=== PATIENT | female | born 1935 | race Caucasian/White ===

== ENCOUNTER → 2017-04-19 | Day surgery (SDC) | payer MEDICARE ==
[~2017-04-19] VITALS: Ht 160 cm; Wt 75.0 kg
[~2017-04-19] MED LIST: ASPI-516 CHEW; ASPI1TAB69 PO; CLON0.1T PO; HYDR-3516 PO; LEVO.075 PO; LEVO50TA4 PO; LIDOCAINE HCL 1% PF 5 ML SYRINGE OTHER ONE; LISI-515 PO; METR250 PO; POLYSOL14 EACH EYE; PRIL20CA9 PO; PRIL20TA2 PO; PROPOFOL 200 MG/20 ML AMP IV ONE; SODIUM CHLOR 0.9% 1000 ML INJ 1,000 ML IV SCH; VITA1000 PO; VITACAP7 PO; WARF4TAB51 PO
[2017-04-19 07:04] VITALS: BP 204/88; PULSE 89; RESP 17; TEMP 99.2; O2SAT 99
--- NOTE | 2017-04-19 07:25 | PD ---
HPI Chief Complaint: GI Complaint Time Seen by Provider: 07:13 Travel History International Travel<30 days: No Contact w/Intl Traveler<30days: No Traveled to known affect area: No History of Present Illness HPI patient states she is having difficulty swallowing, not with initiating necessarily but unable to keep even water which gets to about midchest and then "comes back up" again...since 1700 yesterday, and usually seems to improve on its own but also if it doesn't it means that her esophagus "needs to be stretched" again. she has not been able to take her usual medications either...although initially able to swallow her own secretions, after an hour or so patient states she vomits and notices is her saliva (no foodstuff in it) chart and rn notes reviewed all:many see above pmhx: hiatal hernia, esophageal strictures, htn hyperlipidemia, factor 5 leiden , pshx: esophageal dilations PFSH Past Medical History Arthritis: Yes (HANDS) Blood Disorders: Yes (FACTOR 5) Cancer: No Cardiovascular Problems: Yes High Cholesterol: No Chest Pain: No Cerebrovascular Accident: No Diminished Hearing: No Endocrine: Yes Gastrointestinal Disorders: Yes (ISCHEMIC COLITIS, ESOPHAGEAL STRICTURES) GERD: Yes Genitourinary: No Headaches: Yes (WITH HYPERTENSION) Hiatal Hernia: Yes Hypertension: Yes Immune Disorder: No Musculoskeletal: No Neurologic: No Reproductive: No Respiratory: No Renal Failure: No Thyroid Disease: Yes (HYPOTHYROID) Menopausal: Yes Past Surgical History Abdominal Surgery: Yes (COLON RESECTION, RIGHT INGUINAL HERNIA REPAIR) Appendectomy: Yes (50 YEARS AGO) Cardiac Surgery: No Ear Surgery: No Endocrine Surgery: No Eye Surgery: No Genitourinary Surgery: No Gynecologic Surgery: Yes (OOPHERECTECTOMY) Hysterectomy: Yes (PARTIAL 40+YRS AGO THEN COMPLETED 20YRS AGO) Oral Surgery: No Thoracic Surgery: No Other Surgery: Yes (see hx) Social History Alcohol Use: No (OCC) Tobacco Use: No Substance Use: No Allergies-Medications (Allergen,Severity, Reaction): Coded Allergies: codeine (Unverified Allergy, Severe, EMESIS, 01/13/17) iodine (Unverified Allergy, Severe, HIVES, 01/13/17) iohexol (Unverified Allergy, Severe, HIVES, 01/13/17) levofloxacin (Unverified Allergy, Severe, THRUSH/RED TONGUE, 01/13/17) penicillin G (Unverified Allergy, Severe, EDEMA, 01/13/17) potassium iodide (Unverified Allergy, Severe, HIVES, 01/13/17) povidone-iodine (Unverified Allergy, Severe, HIVES, 01/13/17) sodium iodide (Unverified Allergy, Severe, HIVES, 01/13/17) sodium iodide (Unverified Allergy, Severe, HIVES, 01/13/17) Sulfa (Sulfonamide Antibiotics) (Unverified Allergy, Unknown, UNKNOWN, ) ciprofloxacin (Verified Allergy, Unknown, 04/19/17) doxycycline (Verified Allergy, Unknown, 04/19/17) Reported Meds & Prescriptions Reported Meds & Active Scripts Active Reported Flagyl (Metronidazole) 250 Mg Tab 250 Mg PO DAILY Hydrocodone-Acetaminophen 5-325 mg Tab 1 Tab PO Q6H PRN Clonidine (Clonidine HCl) 0.1 Mg Tab 0.1 Mg PO DAILY Lisinopril 20 Mg Tab 20 Mg PO DAILY Prilosec (Omeprazole Magnesium) 20 Mg Tab 1 Tab PO DAILY Synthroid (Levothyroxine Sodium) 75 Mcg Tab 75 Mcg PO DAILY Aspirin 81 Mg Chew 81 Mg CHEW DAILY B Complex (B-Complex Vitamins) 1 Cap 1 Cap PO DAILY Vitamin D-1000 (Cholecalciferol) 1,000 Unit Tab 1,000 Units PO DAILY Warfarin 2 Mg Tab 2 Mg PO DAILY Review of Systems Except as stated in HPI: all other systems reviewed are Neg General / Constitutional: No: Fever Eyes: No: Visual changes HENT: No: Headaches Cardiovascular: No: Chest Pain or Discomfort Respiratory: No: Shortness of Breath Gastrointestinal: Positive: Vomiting, Dysphagia Genitourinary: No: Dysuria Musculoskeletal: No: Pain Skin: No Rash Neurologic: No: Weakness Psychiatric: No: Depression Endocrine: No: Polydipsia Hematologic/Lymphatic: No: Easy Bruising Physical Exam Narrative GENERAL: SKIN: Warm and dry. HEAD: Atraumatic. Normocephalic. EYES: Pupils equal and round. No scleral icterus. No injection or drainage. ENT: No nasal bleeding or discharge. Mucous membranes pink and moist. NECK: Trachea midline. No JVD. CARDIOVASCULAR: Regular rate and rhythm. RESPIRATORY: No accessory muscle use. Clear to auscultation. Breath sounds equal bilaterally. GASTROINTESTINAL: Abdomen soft, non-tender, nondistended. MUSCULOSKELETAL: Extremities without clubbing, cyanosis, or edema. No obvious deformities. NEUROLOGICAL: Awake and alert. No obvious cranial nerve deficits. Motor grossly within normal limits. Five out of 5 muscle strength in the arms and legs. Normal speech. PSYCHIATRIC: Appropriate mood and affect; insight and judgment normal. Data Data Last Documented VS Vital Signs Date Time Temp Pulse Resp B/P (MAP) Pulse Ox O2 Delivery O2 Flow Rate FiO2 04/19/17 07:34 75 16 163/90 (114) 97 Room Air 04/19/17 07:04 99.2 Orders Orders Complete Blood Count With Diff (04/19/17 07:25) Comprehensive Metabolic Panel (04/19/17 07:25) Lipase (04/19/17 07:25) Prothrombin Time / Inr (Pt) (04/19/17 07:25) Act Partial Throm Time (Ptt) (04/19/17 07:25) Abdomen, Flat & Upright (04/19/17 ) Iv Access Insert/Monitor (04/19/17 07:25) Ecg Monitoring (04/19/17 07:25) Oximetry (04/19/17 07:25) NPO (04/19/17 07:25) Sodium Chlor 0.9% 1000 Ml Inj (Ns 1000 M (04/19/17 07:25) Electrocardiogram (04/19/17 07:25) Troponin I (04/19/17 07:26) Panendo (04/19/17 ) Labs Laboratory Tests Test 04/19/17 07:30 White Blood Count 7.8 TH/MM3 Red Blood Count 5.38 MIL/MM3 Hemoglobin 15.5 GM/DL Hematocrit 46.1 % Mean Corpuscular Volume 85.7 FL Mean Corpuscular Hemoglobin 28.8 PG Mean Corpuscular Hemoglobin Concent 33.6 % Red Cell Distribution Width 15.6 % Platelet Count 281 TH/MM3 Mean Platelet Volume 8.1 FL Neutrophils (%) (Auto) 75.3 % Lymphocytes (%) (Auto) 14.6 % Monocytes (%) (Auto) 7.4 % Eosinophils (%) (Auto) 1.6 % Basophils (%) (Auto) 1.1 % Neutrophils # (Auto) 5.9 TH/MM3 Lymphocytes # (Auto) 1.1 TH/MM3 Monocytes # (Auto) 0.6 TH/MM3 Eosinophils # (Auto) 0.1 TH/MM3 Basophils # (Auto) 0.1 TH/MM3 CBC Comment DIFF FINAL Differential Comment Prothrombin Time 19.0 SEC Prothromb Time International Ratio 1.7 RATIO Activated Partial Thromboplast Time 34.8 SEC Blood Urea Nitrogen 9 MG/DL Creatinine 0.78 MG/DL Random Glucose 104 MG/DL Total Protein 8.5 GM/DL Albumin 3.9 GM/DL Calcium Level 9.1 MG/DL Alkaline Phosphatase 91 U/L Aspartate Amino Transf (AST/SGOT) 27 U/L Alanine Aminotransferase (ALT/SGPT) 29 U/L Total Bilirubin 0.6 MG/DL Sodium Level 140 MEQ/L Potassium Level 4.1 MEQ/L Chloride Level 106 MEQ/L Carbon Dioxide Level 24.0 MEQ/L Anion Gap 10 MEQ/L Estimat Glomerular Filtration Rate 70 ML/MIN Troponin I LESS THAN 0.02 NG/ML Lipase 93 U/L MDM Medical Decision Making Medical Screen Exam Complete: Yes Emergency Medical Condition: Yes Medical Record Reviewed: Yes Interpretation(s) nsr, 74, rbbb, no stemi pattern Differential Diagnosis dysphagia v esophageal stricture v hiatal hernia v stemi Narrative Course preop labs ordered and cleared. currently awaiting call back from dr cuadra as to gi lab availability...as of 829 patient has been added to today's schedule though it is unknown as to the actual time Physician Communication Physician Communication consulted dr valdez, dr Guerrero cuadra (gi partner) returned call and stated that he will call gi lab and assess availability Diagnosis Primary Impression: Esophageal stricture Ede Burk MD Apr 19, 2017 07:25
[2017-04-19 07:34] VITALS: BP 163/90; PULSE 75; RESP 16; O2SAT 97
[2017-04-19 08:00] LABS: AUTOMATED NEUTROPHIL # 5.9 TH/MM3 (1.8-7.7); BASOPHIL # 0.1 TH/MM3 (0-0.2); BASOPHIL % 1.1 % (0.0-2.0); EOSINOPHIL # 0.1 TH/MM3 (0-0.4); EOSINOPHIL % 1.6 % (0.0-4.0); HEMATOCRIT 46.1 % (35.0-46.0); HEMO FLAGS DIFF FINAL; LYMPH % 14.6 % (9.0-44.0); LYMPHOCYTE # 1.1 TH/MM3 (1.0-4.8); MEAN CELL VOLUME 85.7 FL (80.0-100.0); MEAN CORPUSCULAR HEMOGLOBIN 28.8 PG (27.0-34.0); MEAN CORPUSCULAR HGB CONC 33.6 % (32.0-36.0); MONO % 7.4 % (0.0-8.0); NEUT % 75.3 % (16.0-70.0); PLATELET COUNT 281 TH/MM3 (150-450); RED BLOOD COUNT 5.38 MIL/MM3 (4.00-5.30); RED CELL DISTRIBUTION WIDTH 15.6 % (11.6-17.2); WHITE BLOOD COUNT 7.8 TH/MM3 (4.0-11.0)
[2017-04-19 08:08] LABS: APTT (PATIENT) 34.8 SEC (24.3-30.1); INTERNATIONAL NORMALIZED RATIO 1.7 RATIO
[2017-04-19 08:10] VITALS: BP 160/73; PULSE 76; RESP 18; O2SAT 99
--- NOTE | 2017-04-19 08:13 | RADRPT ---
EXAM DATE/TIME: 04/19/2017 07:57 [place] COMPARISON: No previous studies available for comparison. INDICATIONS : Difficulty swallowing, nausea, vomiting x2 days. MEDICAL HISTORY : Factor A SURGICAL HISTORY : Inguinal hernia repair. Hysterectomy. Carotid endarterectomy. ENCOUNTER: Initial ACUITY: 2 days PAIN SCORE: 8/10 LOCATION: Abdomen FINDINGS: Stool is seen throughout the colon. No dilated loops of bowel are noted. No air-fluid levels or signi ficant free air. No abnormal calcifications or gross organomegaly. Surgical clips are seen in the lef t lower quadrant. S-shaped thoracolumbar scoliosis. Osseous structures are intact. CONCLUSION: 1. Nonobstructive bowel gas pattern. Ernst Bennett MD on April 19, 2017 at 8:10 Board Certified Radiologist. This report was verified electronically.
[2017-04-19 08:17] LABS: ALT (GPT) 29 U/L (10-53); ANION GAP 10 MEQ/L (5-15); AST (GOT) 27 U/L (15-37); BLOOD UREA NITROGEN 9 MG/DL (7-18); CHLORIDE 106 MEQ/L (98-107); GLOMERULAR FILTRATION RATE 70 ML/MIN (>89); POTASSIUM 4.1 MEQ/L (3.5-5.1); SODIUM (NA) 140 MEQ/L (136-145)
[2017-04-19 08:19] LABS: ALKALINE PHOSPHATASE 91 U/L (45-117); TOTAL BILIRUBIN ADULT 0.6 MG/DL (0.2-1.0)
--- NOTE | 2017-04-19 09:23 | HHI.GIFU ---
GI Follow-up Note Consult Follow-up Post procedure note EGD with meat impaction. ASSESSMENT/PLAN: 1. Distal Esophageal stricture. 2. S/P foreign body removal PLAN: 1. Resume diet (soft) 2. Resume meds 3. Follow up with Dr Hoover in 2-3 wks. 4. will need out pt EGD with Dilation once coumadin has been held. It was a pleasure seeing Sandy Oakley. Thank you for this consult. Entered by: David Moreira MD Apr 19, 2017 09:23
--- NOTE | 2017-04-19 09:32 | GIPROC ---
[facility] [address] [facility]. 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 PROCEDURE PERFORMED: EGD w/ fb removal MEDICATIONS: None and Per Anesthesia. ASA CLASS: Class III PHYSICAL EXAM: normal CONSENT: The patient understands the risks and benefits of the procedure and understands that these risks include, but are not limited to: sedation, allergic reaction, infection, perforation and/or bleeding. Alternative means of evaluation and treatment include, among others: physical exam, x-rays, and/or surgical intervention. The patient elects to proceed with this endoscopic procedure. DESCRIPTION OF PROCEDURE: for proper function. Hand hygiene and appropriate measures for infection prevention was taken. After the risks, benefits and alternatives of the procedure were thoroughly explained, Informed consent was verified, confirmed and timeout was successfully executed by the treatment team. The [employer] [id number] endoscope was introduced through the mouth and advanced to the second portion of the duodenum. The instrument was slowly withdrawn as the mucosa was fully examined. ESOPHAGUS: There was a large amount of residual food seen in the distal esophagus. The meat impaction was pushed down into the stomach. There was a benign appearing stricture at the gastroesophageal junction. The stricture was traversable with resistance. Was not dilated due to patient being on coumadin. STOMACH: The mucosa of the stomach appeared normal. DUODENUM: The duodenal mucosa appeared normal in the 2nd part of the duodenum. Retroflexion was performed and was normal and Retroflexed views revealed a hiatal hernia The gastroscope was then slowly withdrawn and removed. COMPLICATIONS: There were no complications. IMPRESSIONS: 1. There was a large amount of residual food seen in the distal esophagus 2. There was a stricture at the gastroesophageal junction 3. The mucosa of the stomach appeared normal 4. Normal duodenal mucosa in the 2nd part of the duodenum 5. Retroflexion was performed and was normal 6. Retroflexed views revealed a hiatal hernia RECOMMENDATIONS: Resume diet, medications. will need repeat EGD with dilation as outpt, after stopping anticoagulation. PATIENT CONDITION: stable DISPOSITION: Home REPEAT EXAM: Return 2 weeks EGD with dilatation David Pastor MD eSigned: David Pastor MD 04/19/2017 9:31 AM cc: PATIENT NAME: Sandy Oakley MR#: [id number]
[2017-04-19 09:43] VITALS: BP 149/71; PULSE 72; RESP 18; O2SAT 98
--- NOTE | 2017-04-19 10:26 | MB ---
cc: DO,MAVERICK DATE OF 1935 SERVICE DATE 04/19/2017 ENDOSCOPIST Maverick Do MD PRIMARY DEDICATED DRIVER Sage Hoover MD REASON FOR CONSULTATION Meat impaction, dysphagia, inability to swallow. HISTORY OF PRESENT ILLNESS This is an 82-year-old pleasant lady who comes into the hospital complaining of dysphagia and food getting stuck. She was in her usually state of health until yesterday and she ate a meal that included multiple vegetables as well as some beef. She ate this last night and noticed after eating about three bites her food was stuck or sticking in the lower part of her esophagus. She tried multiple maneuvers to try to forcefully regurgitate it but unfortunately was not successful. Finally she decided to come into the emergency room for further workup and evaluation. She was then able to swallow some of her saliva but she is not able to tolerate any liquids. After drinking a small amount of water, it comes back up. She has a history of distal esophageal sphincter which has been dilated in the past by Dr. Weeks. PAST MEDICAL HISTORY 1. Schatzki's ring. 2. Gastroesophageal reflux disease. 3. Large hiatal hernia. 4. Long-term anticoagulation use with Coumadin. 5. Hypothyroidism. PAST SURGERIES 1. Appendectomy. 2. Hysterectomy. 3. Multiple EGDs and colonoscopies with dilation in the past. ALLERGIES Multiple medication allergies. It is unclear if all of them are true allergies or if they are adverse reactions. MEDICATIONS Please MAR for a complete accurate list. FAMILY HISTORY No GI malignancies. SOCIAL HISTORY Denies regular tobacco or alcohol use. REVIEW OF SYSTEMS A 12-point review of systems was obtained by me and shown to be negative or noncontributory except for the above-mentioned in the HPI. PHYSICAL EXAMINATION GENERAL: Alert, oriented x3, in mild acute distress. VITAL SIGNS: Normal. Afebrile. HEENT: Head is normocephalic. All mucosae moist and pink. EYES: Pupils equal, round, reactive to light. CARDIOVASCULAR: Regular rate and rhythm. No murmur is heard. LUNG: Clear. No wheezes. ABDOMEN: Soft, nontender, nondistended. Bowel sounds present in all four quadrants. EXTREMITIES: No edema noted. MUSCULOSKELETAL: Equal strength in upper and lower extremities. SKIN: Warm, dry and intact. NEURO: Alert, oriented no focal deficits. GENITOURINARY: No CVA angle tenderness noted. IMPRESSION 1. Meat impaction. Suspected foreign body in the distal esophagus. 2. Dysphagia. 3. Long-term anticoagulation with Coumadin. She has INR of 1.7. RECOMMENDATIONS N.p.o. We will plan for an urgent endoscopy with the foreign body removal. I had a long discussion with the patient regarding the risks, benefits and alternatives to the procedure. I explained that, due to her inability to swallow any oral intake, she will need an urgent endoscopy. Unfortunately due to her anticoagulation use. I am not able to dilate her esophagus at this time. She is agreeable to proceeding with the procedure. Thank you very much. Maverick Do MD KRP/SSB /9:52 AM /10:17 AM
--- NOTE | 2017-04-19 16:18 | EKG ---
Date Performed: 04/19/2017 Time Performed: 07:46:11 PTAGE: 82 years EKG: Sinus rhythm RIGHT BUNDLE BRANCH BLOCK Compared to prior tracing no significant change ABNORMAL ECG PREVIOUS TRACING : 05/27/2014 15.53 DOCTOR: Dale Woodson Interpretating Date/Time 04/19/2017 16:16:33
== END | disposition home or self-care (01) ==
LOC: NEPE 07:03 → HSDC 08:48
PROVIDERS: ATTEND Internal Medicine Gastroenterology
DX: T18.128A Food in esophagus causing other injury, initial encounter (principal); K22.2 Esophageal obstruction; K21.9 Gastro-esophageal reflux disease without esophagitis; D68.51 Activated protein C resistance; E03.9 Hypothyroidism, unspecified; E78.5 Hyperlipidemia, unspecified; I10 Essential (primary) hypertension; R94.31 Abnormal electrocardiogram [ECG] [EKG]
CPT/HCPCS: 00740; 43247; 74020; 80053; 83690; 84484; 85025; 85610; 85730; 93005; 99285; J7030

== ENCOUNTER → 2017-08-02 | Outpatient (CLI) | payer MEDICARE ==
[~2017-08-02] MED LIST changes: -ASPI1TAB69 PO; -LEVO50TA4 PO; -LIDOCAINE HCL 1% PF 5 ML SYRINGE OTHER ONE; -POLYSOL14 EACH EYE; -PRIL20CA9 PO; -PROPOFOL 200 MG/20 ML AMP IV ONE; -SODIUM CHLOR 0.9% 1000 ML INJ 1,000 ML IV SCH
--- NOTE | 2017-08-03 19:07 | EKG ---
Date Performed: 08/02/2017 Time Performed: 11:23:18 PTAGE: 82 years EKG: Sinus rhythm . Rightward axis Right bundle branch block Inferior/lateral ST-T changes may be due to myocardial isc hemia Abnormal ECG Since the prior tracing, there has been no significant change PREVIOUS TRACING :04/19/2017 DOCTOR: Barry Junior Interpretating Date/Time 08/03/2017 19:05:06
== END ==
LOC: HCAV 10:55
PROVIDERS: ATTEND Internal Medicine
DX: Z13.6 Encounter for screening for cardiovascular disorders (principal); R94.31 Abnormal electrocardiogram [ECG] [EKG]
CPT/HCPCS: 93005

== ENCOUNTER → 2017-08-05 | Outpatient (CLI) | payer MEDICARE ==
--- NOTE | 2017-08-09 11:25 | RSPPFT ---
DATE OF PROCEDURE: 08/05/17 COMMENTS: Spirometry demonstrates an FEV1 of 1.3 at 84% of predicted, FVC of 1.6 at 71%, FEF 25-75 is 137%. Post-bronchodilator study demonstrated no significant changes. Lung volumes could not be completed due to technical defect. Diffusion capacity is moderately reduced. Flow volume loops are suggestive of a restrictive pattern. IMPRESSION: 1. Mild restrictive disease. 2. No significant obstructive disease. 3. No significant change following use of bronchodilator. 4. Moderate loss in diffusion but normal when corrected for alveolar volume.
== END ==
LOC: HRSP 10:35
PROVIDERS: ATTEND Internal Medicine
DX: R06.02 Shortness of breath (principal); R09.89 Other specified symptoms and signs involving the circulatory and respiratory systems
CPT/HCPCS: 94060; 94729

== ENCOUNTER 2018-01-13 03:17 | Inpatient (IN) ==
--- NOTE | 2018-01-13 04:05 | ED ---
HPI General Chief complaint: GI Bleed Stated complaint: Medical complaint Time Seen by Provider: 01/13/18 03:38 Source: patient Mode of arrival: ambulatory Limitations: no limitations History of Present Illness HPI Narrative: The patient is a 82-year-old female who presents to the emergency department for GI bleed. The patient has a history of factor V Leiden deficiency and is anticoagulated with warfarin. The patient states she had some lower abdominal cramping earlier tonight and then noticed a small amount of blood in her stool. The patient then had some more abdominal cramping and had a larger bowel movement with bright red blood clots. Patient has had several bowel movements with blood clots visible within the toilet. The patient denies any known history of diverticulosis and states that she had a colonoscopy and endoscopy performed within the last year by Dr. Perry which was unremarkable per her report. She denies any pain with defecation perirectally, but does note anterior abdominal cramping. Symptoms are moderate. There are no current alleviating factors. MD complaint: blood streaked stool and gross hematochezia Onset (ago): minute(s) Pain Consistency: intermittent Severity: moderate Relieving factors: none Exacerbating factors: bowel movement Context: anticoagulant use Associated symptoms: abdominal pain Treatments Prior to Arrival: none Related Data Home Medications Medication Instructions Recorded Confirmed aspirin 81 mg PO DAILY 01/13/18 01/13/18 cholecalciferol (vitamin D3) 1,000 unit PO DAILY 01/13/18 01/13/18 [Vitamin D3] clonidine HCl 0.1 mg PO PRN 01/13/18 hydrocodone-acetaminophen 1 tab PO Q4-6H PRN 01/13/18 01/13/18 levothyroxine [Synthroid] 75 mcg PO DAILY 01/13/18 01/13/18 lisinopril 20 mg PO DAILY 01/13/18 01/13/18 omeprazole magnesium [Prilosec OTC] 20 mg PO DAILY 01/13/18 01/13/18 vitamin B complex 1 tab PO DAILY 01/13/18 01/13/18 warfarin 2 mg PO DAILY 01/13/18 01/13/18 Allergies Allergy/AdvReac Type Severity Reaction Status Date / Time codeine Allergy Severe EMESIS Unverified 01/13/17 01:40 iodine Allergy Severe HIVES Unverified 01/13/17 01:40 iohexol Allergy Severe HIVES Unverified 01/13/17 01:40 levofloxacin Allergy Severe THRUSH/RED Unverified 01/13/17 01:40 TONGUE penicillin G Allergy Severe EDEMA Unverified 01/13/17 01:40 potassium iodide Allergy Severe HIVES Unverified 01/13/17 01:40 povidone-iodine Allergy Severe HIVES Unverified 01/13/17 01:40 sodium iodide Allergy Severe HIVES Unverified 01/13/17 01:40 sodium iodide Allergy Severe HIVES Unverified 01/13/17 01:40 ciprofloxacin Allergy Unknown Verified 04/19/17 07:26 doxycycline Allergy Unknown Verified 04/19/17 07:26 Sulfa (Sulfonamide Allergy Unknown UNKNOWN Unverified 01/13/17 01:40 Antibiotics) Review of Systems ROS: all other systems reviewed are negative [facility] Medical History Medical History Factor 5 Leiden mutation, heterozygous (Acute) HTN (hypertension) (Acute) Hyperlipidemia (Acute) Surgical History Surgical History Hx of left hemicolectomy (Acute) Social History Social History Substance History: No History of Abuse Second Hand Smoke Exposure: No Smoking Status: Never smoker How Often Do You Have a Drink Containing Alcohol: Never Recent Travel in [facility] within the Last 8 Weeks: No Recent Out of Country Travel within the Last 8 Weeks: No Immunization History Tetanus Immunization: Unsure Hx Influenza Vaccine This Season: Yes Exam Narrative Exam Narrative: GENERAL: Awake, alert, pleasant 82-year-old female who appears her stated age and is in no acute respiratory distress. SKIN: Focused skin assessment warm/dry. HEAD: Atraumatic. Normocephalic. EYES: Pupils equal and round. No scleral icterus. No injection or drainage. ENT: No nasal bleeding or discharge. Mucous membranes pink and moist. NECK: Trachea midline. No JVD. CARDIOVASCULAR: Regular rate and rhythm. No murmur appreciated. RESPIRATORY: No accessory muscle use. Clear to auscultation. Breath sounds equal bilaterally. GASTROINTESTINAL: Abdomen soft, mild lower quadrant tenderness bilaterally. Rectal: The exam was performed in the presence of a female roller leveler. Bright red blood on digital exam that is grossly guaiac positive. MUSCULOSKELETAL: No obvious deformities. No clubbing. No cyanosis. No edema. NEUROLOGICAL: Awake and alert. No obvious cranial nerve deficits. Motor grossly within normal limits. Normal speech. PSYCHIATRIC: Appropriate mood and affect; insight and judgment normal. Procedures Hemaprompt Stool Procedural Steps Taken: specimen placed in appropriate test area Hemaprompt Stool Result: positive Course Initial Documented Vital Signs Temperature 99 F 01/13/18 03:23 Pulse Rate 83 01/13/18 03:23 Respiratory Rate 18 01/13/18 03:23 Blood Pressure 202/89 H 01/13/18 03:23 Pulse Oximetry 98 01/13/18 03:23 Last Documented Vital Signs Temperature 99 F 01/13/18 03:23 Pulse Rate 83 01/13/18 03:23 Respiratory Rate 18 01/13/18 03:23 Blood Pressure 202/89 H 01/13/18 03:23 Pulse Oximetry 98 01/13/18 03:23 Medical Decision Making MDM Narrative Medical decision making narrative: IV was established, labs are drawn and sent, and the patient was placed on cardiac telemetry monitoring and continuous pulse oximetry monitoring. Type and screen was sent to lab. Rectal exam was performed which reveals gross blood on digital exam that is grossly guaiac positive. Hemoglobin is 14.3. INR is elevated at 2.5 consistent with warfarin therapy. The patient was reevaluated, she had another large bowel movement with bright red blood and clots. As the patient is on Coumadin with a history of coagulopathy and has had multiple large bowel movements with bright red blood and clots, the patient will be 23-hour observation. The patient may benefit from serial CBC and evaluation by her minister of religion, Dr. Hoover. Medical Screen Exam Complete: Yes Emergency Medical Condition: Yes Lab Data Result diagrams: 01/13/18 04:02 01/13/18 04:02 Lab Results 01/13/18 01/13/18 01/13/18 Range/Units 04:02 04:02 04:02 WBC 9.2 (4.0-11.0) th/mm3 RBC 4.85 (4.00-5.30) mil/mm3 Hgb 14.3 (11.6-15.3) gm/dL Hct 41.9 (35.0-46.0) % MCV 86.4 (80.0-100.0) fL MCH 29.6 (27.0-34.0) pg MCHC 34.2 (32.0-36.0) % RDW 15.7 (11.6-17.2) % Plt Count 243 (150-450) th/mm3 MPV 7.9 (7.0-11.0) fL Neut % (Auto) 75.1 H (16.0-70.0) % Lymph % (Auto) 16.1 (9.0-44.0) % Casey % (Auto) 6.6 (0.0-8.0) % Eos % (Auto) 1.7 (0.0-4.0) % Baso % (Auto) 0.5 (0.0-2.0) % Neut # (Auto) 6.9 (1.8-7.7) th/mm3 Lymph # (Auto) 1.5 (1.0-4.8) th/mm3 Casey # (Auto) 0.6 (0.0-0.9) th/mm3 Eos # (Auto) 0.2 (0.0-0.4) th/mm3 Baso # (Auto) 0.0 (0.0-0.2) th/mm3 WBC Differential . Differential Comment Auto diff final PT 25.0 H (9.8-11.6) sec INR 2.5 Ratio APTT 36.6 H (24.3-30.1) sec Sodium 144 (136-145) meq/L Potassium 4.0 (3.5-5.1) meq/L Chloride 110 H (98-107) meq/L Carbon Dioxide 25.0 (21.0-32.0) meq/L Anion Gap 9 (5-15) meq/L BUN 8 (7-18) mg/dL Creatinine 0.75 (0.50-1.00) mg/dL Estimated GFR 74 L (>89) mL/min Random Glucose 96 (74-106) mg/dL Calcium 8.8 (8.5-10.1) mg/dL Total Bilirubin 0.5 (0.2-1.0) mg/dL AST 21 (15-37) U/L ALT 24 (10-53) U/L Alkaline Phosphatase 74 (45-117) U/L Total Protein 7.6 (6.4-8.2) g/dL Albumin 3.5 (3.4-5.0) g/dL Blood Type Blood Type Recheck Antibody Screen 01/13/18 Range/Units 04:46 WBC (4.0-11.0) th/mm3 RBC (4.00-5.30) mil/mm3 Hgb (11.6-15.3) gm/dL Hct (35.0-46.0) % MCV (80.0-100.0) fL MCH (27.0-34.0) pg MCHC (32.0-36.0) % RDW (11.6-17.2) % Plt Count (150-450) th/mm3 MPV (7.0-11.0) fL Neut % (Auto) (16.0-70.0) % Lymph % (Auto) (9.0-44.0) % Casey % (Auto) (0.0-8.0) % Eos % (Auto) (0.0-4.0) % Baso % (Auto) (0.0-2.0) % Neut # (Auto) (1.8-7.7) th/mm3 Lymph # (Auto) (1.0-4.8) th/mm3 Casey # (Auto) (0.0-0.9) th/mm3 Eos # (Auto) (0.0-0.4) th/mm3 Baso # (Auto) (0.0-0.2) th/mm3 WBC Differential Differential Comment PT (9.8-11.6) sec INR Ratio APTT (24.3-30.1) sec Sodium (136-145) meq/L Potassium (3.5-5.1) meq/L Chloride (98-107) meq/L Carbon Dioxide (21.0-32.0) meq/L Anion Gap (5-15) meq/L BUN (7-18) mg/dL Creatinine (0.50-1.00) mg/dL Estimated GFR (>89) mL/min Random Glucose (74-106) mg/dL Calcium (8.5-10.1) mg/dL Total Bilirubin (0.2-1.0) mg/dL AST (15-37) U/L ALT (10-53) U/L Alkaline Phosphatase (45-117) U/L Total Protein (6.4-8.2) g/dL Albumin (3.4-5.0) g/dL Blood Type O Negative Blood Type Recheck Required Antibody Screen Negative Discharge Plan Discharge Disposition Patient Disposition: 30 Still Patient Discharge Condition Condition: Stable Discharge Details Diagnosis: Hematochezia, GI bleed Physicians Team ED Provider: Blair Butler Primary Care Provider: UNKNOWN, Rxs /Orders / Referrals /Forms Prescriptions: No Action clonidine HCl 0.1 mg Tablet 0.1 mg PO PRN (Reason: Hypertension) RF: 0 hydrocodone-acetaminophen 5-325 mg Tablet 1 tab PO Q4-6H PRN (Reason: Pain) RF: 0 lisinopril 20 mg Tablet 20 mg PO DAILY RF: 0 levothyroxine [Synthroid] 75 mcg Tablet 75 mcg PO DAILY RF: 0 warfarin 2 mg Tablet 2 mg PO DAILY RF: 0 aspirin 81 mg Tablet,Chewable 81 mg PO DAILY RF: 0 vitamin B complex Tablet 1 tab PO DAILY RF: 0 cholecalciferol (vitamin D3) [Vitamin D3] 1,000 unit Capsule 1,000 unit PO DAILY RF: 0 omeprazole magnesium [Prilosec OTC] 20 mg Tablet,Delayed Release (Dr/Ec) 20 mg PO DAILY RF: 0 Status ED Status: Pending Admission
[2018-01-13 04:19] LABS: Baso % (Auto) 0.5 % (0.0-2.0); Eos # (Auto) 0.2 th/mm3 (0.0-0.4); Eos % (Auto) 1.7 % (0.0-4.0); Hematocrit 41.9 % (35.0-46.0); Hemoglobin 14.3 gm/dL (11.6-15.3); Lymph # (Auto) 1.5 th/mm3 (1.0-4.8); Lymph % (Auto) 16.1 % (9.0-44.0); Mean Corpuscular HGB Conc 34.2 % (32.0-36.0); Mean Corpuscular Hemoglobin 29.6 pg (27.0-34.0); Mean Corpuscular Volume 86.4 fL (80.0-100.0); Mean Platelet Volume 7.9 fL (7.0-11.0); Mono # (Auto) 0.6 th/mm3 (0.0-0.9); Mono % (Auto) 6.6 % (0.0-8.0); Neut # (Auto) 6.9 th/mm3 (1.8-7.7); Neut % (Auto) 75.1 % (16.0-70.0); Platelet Count 243 th/mm3 (150-450); Red Blood Count 4.85 mil/mm3 (4.00-5.30); Red Cell Distribution Width 15.7 % (11.6-17.2); White Blood Count 9.2 th/mm3 (4.0-11.0)
[2018-01-13 04:41] LABS: Alanine Aminotransferase 24 U/L (10-53); Albumin 3.5 g/dL (3.4-5.0); Anion Gap 9 meq/L (5-15); Aspartate Aminotransferase 21 U/L (15-37); Blood Urea Nitrogen 8 mg/dL (7-18); Calcium 8.8 mg/dL (8.5-10.1); Chloride 110 meq/L (98-107); Glomerular Filtration Rate 74 mL/min (>89); Glucose,Random 96 mg/dL (74-106); Sodium 144 meq/L (136-145)
[2018-01-13 04:43] LABS: Alkaline Phosphatase 74 U/L (45-117); Total Protein 7.6 g/dL (6.4-8.2)
[2018-01-13 04:44] LABS: Activated Partial Thrombo Time 36.6 sec (24.3-30.1); INR 2.5 Ratio
[2018-01-13] MEDS: Sod Chloride 0.9% Inj 1,000 ML IV.CONT SCH ×3 (04:58→20:27)
[2018-01-13] MEDS ORDERED: Pantoprazole Inj 80 MG in Sodium Chlor 0.9% Inj 100 ML IV.CONT SCH (08:00)
[2018-01-13] MEDS ORDERED: Pantoprazole Inj 40 MG Vial IV.PUSH SCH (09:00)
--- NOTE | 2018-01-13 10:00 | P.HPIM ---
History of Present Illness Primary Care Physician: UNKNOWN Chief Complaint: BRBPR History of Present Illness: The patient is an 82-year-old female with past medical history of factor V Leiden, ischemic colitis and hypertension who is presenting to the hospital with bright red blood per rectum. The patient states that she has been having a weird week. She says that she developed pain in her right eye that lasted about half a day. The pain eventually started to involve the bone above her right eye and eventually went away. She says she has noticed her blood pressure has been very high. She went to her primary and her lisinopril was increased from 20 mg once a day to 20 mg twice a day about 2 days ago. She also has clonidine which she takes as needed. She said that yesterday she developed stomach cramps. She said initially the pain was around her bellybutton and then traveled below that. Her stool was described as pink and fluffy. She then developed more pain was continued to progress in nature. She then started to notice clots in her bowel movements and then bright red blood per rectum. She said that at 3 AM it got even worse. She decided to come to the hospital for further evaluation. She said that she is still having some bright red blood per rectum but it is getting better. She has a pressure sensation in her forehead. She says her last colonoscopy was in the beginning of the year and that was normal. She says she is on Coumadin for factor V disease. She is also on aspirin for history of carotid endarterectomy. She does not take NSAIDs otherwise. Inpatient Certification: I certify that the inpatient services were ordered in accordance with Medicare regulations governing the order. This includes certification that hospital inpatient services are reasonable and necessary and in the case of services not specified as inpatient-only under 42 CFR 419.22(n), that they are appropriately provided as inpatient services in accordance to with the 2-midnight benchmark under 43 CFR 412.3(e) Estimated Total Length of Stay (Days): 2 Plans for Post Hospital Care: Home Review of Systems All other systems reviewed negative except as stated in HPI [facility] - History History Provided By: Patient - Medical History Medical History: Medical History (Last Updated 01/13/18 @ 10:04 by Zac Ennis DO) Factor 5 Leiden mutation, heterozygous GERD (gastroesophageal reflux disease) HTN (hypertension) Hyperlipidemia Hypothyroidism Ischemic colitis - Surgical History Surgical History: Surgical History (Last Updated 01/13/18 @ 10:05 by Zac Ennis DO) H/O carotid endarterectomy History of appendectomy History of removal of both ovaries Hx of inguinal hernia surgery Hx of left hemicolectomy Hx of tonsillectomy - Family History Family History: Family History (Last Updated 01/13/18 @ 10:06 by Zac Ennis DO) Other Colon cancer Emphysema lung - Tobacco History Second Hand Smoke Exposure: No Smoking Status: Never smoker - Alcohol History How Often Do You Have a Drink Containing Alcohol: Never - Substance Use History Substance History: No History of Abuse - Travel History Recent Travel in the [place] Within the Last 8 Weeks: No Recent Travel Out of the Country Within the Last 8 Weeks: No - Immunization History Tetanus Immunization: Unsure Hx Influenza Vaccine This Season: Yes Medications and Allergies Active Medications: Active Medications Enalaprilat (Vasotec Inj) 1.25 mg IV.PUSH Q6H PRN PRN Reason: SBP> OR = 180, DBP> OR = 100 Sodium Chloride (Ns Inj) 1,000 mls @ 125 mls/hr IV.CONT .Q8H ANN Last Admin: 01/13/18 04:58 Dose: 125 mls/hr Levothyroxine Sodium (Synthroid) 75 mcg PO DAILY@0600 ANN Lisinopril (Prinivil) 20 mg PO DAILY ANN Ondansetron HCl (Zofran Inj) 4 mg IV.PUSH Q6H PRN PRN Reason: NAUSEA OR VOMITING Pantoprazole Sodium (Protonix Inj) 40 mg IV.PUSH DAILY ANN Sodium Chloride (Ns Flush) 2 ml IV.FLUSH PRN PRN PRN Reason: FLUSH AFTER USING IV ACCESS Temazepam (Restoril) 15 mg PO HS PRN PRN Reason: INSOMNIA Allergies Allergy/AdvReac Type Severity Reaction Status Date / Time codeine Allergy Severe EMESIS Unverified 01/13/17 01:40 iodine Allergy Severe HIVES Unverified 01/13/17 01:40 iohexol Allergy Severe HIVES Unverified 01/13/17 01:40 levofloxacin Allergy Severe THRUSH/RED Unverified 01/13/17 01:40 TONGUE penicillin G Allergy Severe EDEMA Unverified 01/13/17 01:40 potassium iodide Allergy Severe HIVES Unverified 01/13/17 01:40 povidone-iodine Allergy Severe HIVES Unverified 01/13/17 01:40 sodium iodide Allergy Severe HIVES Unverified 01/13/17 01:40 sodium iodide Allergy Severe HIVES Unverified 01/13/17 01:40 ciprofloxacin Allergy Unknown Verified 04/19/17 07:26 doxycycline Allergy Unknown Verified 04/19/17 07:26 Sulfa (Sulfonamide Allergy Unknown UNKNOWN Unverified 01/13/17 01:40 Antibiotics) Home Medications Medication Instructions Recorded Confirmed Type aspirin 81 mg PO DAILY 01/13/18 01/13/18 History cholecalciferol (vitamin D3) 1,000 unit PO DAILY 01/13/18 01/13/18 History [Vitamin D3] clonidine HCl 0.1 mg PO PRN 01/13/18 History hydrocodone-acetaminophen 1 tab PO Q4-6H PRN 01/13/18 01/13/18 History levothyroxine [Synthroid] 75 mcg PO DAILY 01/13/18 01/13/18 History lisinopril 20 mg PO DAILY 01/13/18 01/13/18 History omeprazole magnesium [Prilosec OTC] 20 mg PO DAILY 01/13/18 01/13/18 History vitamin B complex 1 tab PO DAILY 01/13/18 01/13/18 History warfarin 2 mg PO DAILY 01/13/18 01/13/18 History Exam Vital signs: Vital Signs 01/13/18 03:23 01/13/18 06:34 01/13/18 06:36 Temperature 99 F Pulse Rate 83 69 Respiratory Rate 18 18 Blood Pressure 202/89 H 183/73 H Pulse Oximetry 98 97 97 01/13/18 08:00 Temperature 98.5 F Pulse Rate 70 Respiratory Rate 18 Blood Pressure 174/75 H Pulse Oximetry 100 Intake & Output 01/12/18 01/13/18 01/13/18 18:59 06:59 18:59 Weight 71.668 kg Narrative: GENERAL: No distress. SKIN: Focused skin assessment warm/dry. HEAD: Atraumatic. Normocephalic. EYES: Pupils equal and round. No scleral icterus. No injection or drainage. ENT: No nasal bleeding or discharge. Mucous membranes pink and moist. NECK: Trachea midline. No JVD. CARDIOVASCULAR: Regular rate and rhythm. No murmur appreciated. RESPIRATORY: No accessory muscle use. Clear to auscultation. Breath sounds equal bilaterally. GASTROINTESTINAL: Abdomen soft, mild lower quadrant tenderness bilaterally. MUSCULOSKELETAL: No obvious deformities. No clubbing. No cyanosis. No edema. NEUROLOGICAL: Awake and alert. No obvious cranial nerve deficits. Motor grossly within normal limits. Normal speech. PSYCHIATRIC: Appropriate mood and affect; insight and judgment normal. Results - Labs CBC & Chem 7: 01/13/18 04:02 01/13/18 04:02 Labs: Short CBC 01/13/18 Range/Units 04:02 WBC 9.2 (4.0-11.0) th/mm3 Hgb 14.3 (11.6-15.3) gm/dL Hct 41.9 (35.0-46.0) % Plt Count 243 (150-450) th/mm3 BMP 01/13/18 04:02 Sodium 144 Potassium 4.0 Chloride 110 H Carbon Dioxide 25.0 BUN 8 Creatinine 0.75 Calcium 8.8 Liver Function 01/13/18 Range/Units 04:02 Total Bilirubin 0.5 (0.2-1.0) mg/dL AST 21 (15-37) U/L ALT 24 (10-53) U/L Alkaline Phosphatase 74 (45-117) U/L Albumin 3.5 (3.4-5.0) g/dL Caprini VTE Risk Assessment Caprini VTE Risk Assessment: Moderate/High Risk (score >= 2) Caprini Risk Assessment Model: Point Value = 1 Point Value = 2 Point Value = 3 Point Value = 5 Age 41-60 Minor surgery BMI > 25 kg/m2 Swollen legs Varicose veins or History of unexplained or recurrent spontaneous Oral contraceptives or hormone replacement Sepsis (< 1 month) Serious lung disease, including pneumonia (< 1 month) Abnormal pulmonary function Acute myocardial infarction Congestive heart failure (< 1 month) History of inflammatory bowel disease Medical patient at bed rest Age 61-74 Arthroscopic surgery Major open surgery (> 45 min) Laparoscopic surgery (> 45 min) Malignancy Confined to bed (> 72 hours) Immobilizing plaster cast Central venous access Age >= 75 History of VTE Family history of VTE Factor V Leiden Prothrombin [id number] Lupus anticoagulant Anticardiolipin antibodies Elevated serum homocysteine Heparin-induced thrombocytopenia Other congenital or acquired thrombophilia Stroke (< 1 month) Elective arthroplasty Hip, pelvis, or leg fracture Acute spinal cord injury (< 1 month) Prophylaxis Regimen: Total Risk Factor Score Risk Level Prophylaxis Regimen 0-1 Low Early ambulation 2 Moderate Order ONE of the following: *Sequential Compression Device (SCD) *Heparin 5000 units SQ BID 3-4 Higher Order ONE of the following medications: *Heparin 5000 units SQ TID *Enoxaparin/Lovenox 40 mg SQ daily (WT < 150 kg, CrCl > 30 mL/min) *Enoxaparin/Lovenox 30 mg SQ daily (WT < 150 kg, CrCl > 10-29 mL/min) *Enoxaparin/Lovenox 30 mg SQ BID (WT < 150 kg, CrCl > 30 mL/min) AND/OR *Sequential Compression Device (SCD) 5 or more Highest Order ONE of the following medications: *Heparin 5000 units SQ TID (Preferred with Epidurals) *Enoxaparin/Lovenox 40 mg SQ daily (WT < 150 kg, CrCl > 30 mL/min) *Enoxaparin/Lovenox 30 mg SQ daily (WT < 150 kg, CrCl > 10-29 mL/min) *Enoxaparin/Lovenox 30 mg SQ BID (WT < 150 kg, CrCl > 30 mL/min) AND *Sequential Compression Device (SCD) Assessment and Plan - Plan BRBPR The pt is on Coumadin for factor V Leiden deficiency. Her INR is 2.5. She continues to have BRBPR along with some abdominal cramping. She has a history of ischemic colitis. Hemoglobin 14.3 on admission. -GI consult pending. -NPO with IVFs. -IV PPI BID. -holding ASA and Coumadin for now. HTN Blood pressure has been quite elevated. -hold lisinopril in the setting of active GIB. -Vasotec as needed. Factor V Leiden deficiency The patient has been on Coumadin for about 18 years. She has never had any major bleeding. She has not had a stroke before. -Coumadin on hold as above. Resume when OK with GI. PPx: Holding Coumadin in setting of GIB. INR is therapeutic Code Status: Full
[2018-01-13] MEDS: Levothyroxine 75 MCG Tablet PO SCH (11:22)
[2018-01-13 12:51] LABS: Hematocrit 40.8 % (35.0-46.0); Hemoglobin 13.7 gm/dL (11.6-15.3)
[2018-01-13 16:09] LABS: Hematocrit 25.6 % (35.0-46.0); Hemoglobin 8.6 gm/dL (11.6-15.3)
[2018-01-13] MEDS: Acetaminophen 325 MG Tablet PO PRN (17:30)
[2018-01-13] MEDS: Pantoprazole Inj 40 MG Vial IV.PUSH SCH (20:27)
--- NOTE | 2018-01-13 20:53 | MB ---
cc: David Pastor MD DATE: 01/13/2018 SERVICE: GI. ATTENDING PHYSICIAN: David Pastor MD PRIMARY CLINICAL REHABILITATION SPECIALIST: Sage Hoover MD REASON FOR CONSULTATION: GI bleeding. HISTORY OF PRESENT ILLNESS: This is an 82-year-old very pleasant lady with a longstanding history of factor V Leiden, on long-term anticoagulation with Coumadin, and has a distant history of ischemic colitis requiring bowel resection in the distant past, who came into the hospital complaining of abdominal cramping in the periumbilical and left lower quadrant region, associated passage of large amounts of bright red blood per rectum. She was having pain in the right eye with an elevated blood pressure a day or so prior to that. Currently, she has no current eye pain, no visual changes and her pressure is being monitored and improved. She still continues to have a mild amount of abdominal cramping lasting every few minutes, occurring 2-3 hours apart. Her overall bleeding, she states, has decreased. Since admission, her Coumadin and aspirin have been on hold. She denies currently fevers or chills. No nausea or vomiting. PAST MEDICAL HISTORY: Factor V Leiden, GERD, hypertension, dyslipidemia, hypothyroidism, history of ischemic colitis. PAST SURGICAL HISTORY: Carotid endarterectomy, appendectomy, oophorectomy, inguinal hernia repair, left hemicolectomy, tonsillectomy. ENDOSCOPIC HISTORY: Colonoscopy done 07/[address] Hoover. FAMILY HISTORY: Colon cancer. SOCIAL HISTORY: No tobacco use, no alcohol use or illicit drug use. REVIEW OF SYSTEMS: A 12-point review of system was obtained by tn and shown to be negative or noncontributory except for the above-mentioned in the HPI. PHYSICAL EXAMINATION: VITAL SIGNS: Temperature 98.9, heart rate of 71, respirations 20, blood pressure 162/82. GENERAL: Alert, oriented, in no acute distress. HEENT: Pupils equal, round and reactive to light. NECK: No carotid bruits noted. CARDIOVASCULAR: Regular rate and rhythm. No murmur heard. RESPIRATORY: Clear to auscultation bilaterally. No wheezing heard. ABDOMEN: Soft, minimal tenderness to palpation on the left side. No rebound tenderness appreciated. No flank or periumbilical ecchymosis noted. No hepatosplenomegaly identified. Abdominal scar noted. Bowel sounds are present in all 4 quadrants. MUSCULOSKELETAL: Equal strength in the upper and lower extremities. GENITOURINARY: No CV angle tenderness noted. LYMPHATIC: No abnormal lymphadenopathy identified. NEUROLOGIC: Alert and oriented. No focal deficits. PSYCHIATRIC: Cooperative. Appropriate mood and affect. LABORATORY DATA: WBC 9.2. Hemoglobin was 14.3 and dropped to 13.7. The most recent one is 8.6. INR 2.5. Sodium 144, potassium 4.0, chloride 110, bicarbonate 25, BUN 8, creatinine 0.75, total bilirubin 0.5, AST 21, ALT 24, alkaline phosphatase 74. IMPRESSION: 1. Abdominal pain with hematochezia, highly suspicious for ischemic colitis, slowly improving but unfortunately more complicated by long-term anticoagulation use with coumadin. 2. History of factor V Leiden. 3. Coagulopathy. 4. Acute anemia of blood loss. RECOMMENDATIONS: 1. Transfuse 1 unit of packed RBCs. 2. Monitor stool for color and consistency. I had a long discussion with the patient in regard to if the patient does not stop bleeding on her own, then more aggressive therapy may need to be performed such as a tagged bleeding scan, CT angiography or interventional angiography with possible embolization. The patient had a normal colonoscopy in July of this year. Therefore, I do not believe having her undergo an urgent colonoscopy is necessary at this time. Thank you for allowing [facility] to participate in the care of the patient. We will follow along with you and make recommendations as per the patient's clinical course. MD MAURO Soto/elisa/jason , 07:25 PM , 07:36 PM NIC
[2018-01-13] MEDS ORDERED: Sodium Chlor 0.9% Inj 250 ML IV.SIG SCH (21:00)
[2018-01-14] MEDS: Acetaminophen 325 MG Tablet PO PRN (03:07)
[2018-01-14] MEDS: Sod Chloride 0.9% Inj 1,000 ML IV.CONT SCH ×3 (04:24→20:48)
[2018-01-14] MEDS: Levothyroxine 75 MCG Tablet PO SCH (05:21)
[2018-01-14 06:05] LABS: Baso # (Auto) 0.1 th/mm3 (0.0-0.2); Baso % (Auto) 0.7 % (0.0-2.0); Eos # (Auto) 0.2 th/mm3 (0.0-0.4); Eos % (Auto) 2.4 % (0.0-4.0); Hematocrit 42.3 % (35.0-46.0); Hemoglobin 14.4 gm/dL (11.6-15.3); Lymph # (Auto) 1.4 th/mm3 (1.0-4.8); Lymph % (Auto) 17.2 % (9.0-44.0); Mean Corpuscular HGB Conc 34.1 % (32.0-36.0); Mean Corpuscular Hemoglobin 29.6 pg (27.0-34.0); Mean Corpuscular Volume 86.8 fL (80.0-100.0); Mean Platelet Volume 8.2 fL (7.0-11.0); Mono # (Auto) 0.8 th/mm3 (0.0-0.9); Mono % (Auto) 9.5 % (0.0-8.0); Neut # (Auto) 5.7 th/mm3 (1.8-7.7); Neut % (Auto) 70.2 % (16.0-70.0); Platelet Count 207 th/mm3 (150-450); Red Blood Count 4.87 mil/mm3 (4.00-5.30); Red Cell Distribution Width 15.2 % (11.6-17.2); White Blood Count 8.1 th/mm3 (4.0-11.0)
[2018-01-14 06:26] LABS: Anion Gap 8 meq/L (5-15); Blood Urea Nitrogen 6 mg/dL (7-18); Calcium 8.2 mg/dL (8.5-10.1); Carbon Dioxide 24.6 meq/L (21.0-32.0); Chloride 111 meq/L (98-107); Glomerular Filtration Rate Greater Than 89 mL/min (>89); Glucose,Random 78 mg/dL (74-106); Potassium 3.6 meq/L (3.5-5.1); Sodium 144 meq/L (136-145)
[2018-01-14] MEDS: Pantoprazole Inj 40 MG Vial IV.PUSH SCH ×2 (08:36→20:41)
--- NOTE | 2018-01-14 10:13 | P.PNIM ---
Physical Exam Vital signs: Vital Signs 01/13/18 11:17 01/13/18 12:39 01/13/18 16:00 Temperature 98.9 F Pulse Rate 68 96 H 71 Respiratory Rate 20 20 Blood Pressure 163/83 H 162/82 H Pulse Oximetry 99 97 01/13/18 20:00 01/13/18 21:54 01/13/18 22:09 Temperature 98.7 F 97.5 F L 98.3 F Pulse Rate 67 67 68 Respiratory Rate 17 16 16 Blood Pressure 168/80 H 158/83 H 166/79 H Pulse Oximetry 95 96 97 01/14/18 00:20 01/14/18 01:33 01/14/18 04:00 Temperature 97.9 F Pulse Rate 62 64 51 L Respiratory Rate 16 Blood Pressure 154/80 H Pulse Oximetry 96 01/14/18 04:20 01/14/18 07:47 01/14/18 08:00 Temperature 97.6 F 97.9 F Pulse Rate 63 68 70 Respiratory Rate 16 16 16 Blood Pressure 125/70 175/80 H Pulse Oximetry 97 94 L Intake & Output 01/13/18 01/14/18 01/14/18 18:59 06:59 18:59 Intake Total 1000 / 1000 2665 / 2665 Balance 1000 / 1000 2665 / 2665 Weight 69 kg 69 kg Intake: IV 1000 / 1000 2009 NS Inj 1,000 ML @ 125 mls/hr IV 1000 / 1000 1989 .CONT .Q8H ANN Rx#:[id number] NS Inj 250 ML @ 15 mls/hr IV. 20 / 20 SIG ONCE ANN Rx#:[id number] Oral 240 / 240 Other Rbc As-3 Leukoreduced Unit [id number] Intake (Blood Product) Amt 400 / 400 Rbc As-3 Leukoreduced Unit 400 / 400 [id number] Other: Other Intake Source Rbc As-3 Leukoreduced Unit Saline Solution [id number] # Voids 1 Date of Last Bowel Movement 01/13/18 01/13/18 Weight On Admission 69 kg Narrative: GENERAL: Patient sitting up in bed. Appears comfortable. SKIN: Warm and dry. HEAD: Normocephalic. EYES: No scleral icterus. No injection or drainage. NECK: Supple, trachea midline. No JVD or lymphadenopathy. CARDIOVASCULAR: Regular rate and rhythm without murmurs, gallops, or rubs. RESPIRATORY: Breath sounds equal bilaterally. No accessory muscle use. GASTROINTESTINAL: Abdomen soft, non-tender, nondistended. No rebound or guarding. MUSCULOSKELETAL: No cyanosis, or edema. BACK: Nontender without obvious deformity. No CVA tenderness. Results - Labs CBC & Chem 7: 01/14/18 04:48 01/14/18 04:48 Laboratory Results - last 24 hr 01/13/18 01/13/18 01/13/18 12:21 15:40 20:05 WBC RBC Hgb 13.7 8.6 L D Hct 40.8 25.6 L MCV MCH MCHC RDW Plt Count MPV Neut % (Auto) Lymph % (Auto) [place] % (Auto) Eos % (Auto) Baso % (Auto) Neut # (Auto) Lymph # (Auto) [place] # (Auto) Eos # (Auto) Baso # (Auto) WBC Differential Differential Comment Sodium Potassium Chloride Carbon Dioxide Anion Gap BUN Creatinine Estimated GFR Random Glucose Calcium MTS Gel Crossmatch See Detail Bld Prod Order Comment 01/14/18 01/14/18 04:48 04:48 WBC 8.1 RBC 4.87 Hgb 14.4 D Hct 42.3 MCV 86.8 MCH 29.6 MCHC 34.1 RDW 15.2 Plt Count 207 MPV 8.2 Neut % (Auto) 70.2 H Lymph % (Auto) 17.2 [place] % (Auto) 9.5 H Eos % (Auto) 2.4 Baso % (Auto) 0.7 Neut # (Auto) 5.7 Lymph # (Auto) 1.4 [place] # (Auto) 0.8 Eos # (Auto) 0.2 Baso # (Auto) 0.1 WBC Differential . Differential Comment Auto diff final Sodium 144 Potassium 3.6 Chloride 111 H Carbon Dioxide 24.6 Anion Gap 8 BUN 6 L Creatinine 0.56 Estimated GFR Greater than 89 Random Glucose 78 Calcium 8.2 L MTS Gel Crossmatch Bld Prod Order Comment Assessment and Plan - Plan //BRBPR The pt is on Coumadin for factor V Leiden deficiency. Her INR is 2.5. She continues to have BRBPR along with some abdominal cramping. She has a history of ischemic colitis. Hemoglobin 14.3 on admission. -GI consult pending. -NPO with IVFs. -IV PPI BID. -holding ASA and Coumadin for now. = 01/14. Hemoglobin stable at 14.4. Unfortunately received a unit of PRBCs due to what is probably a lab error with hemoglobin 8.6. Will discuss with GI regarding further workup. Continue to monitor. //HTN Blood pressure has been quite elevated. -hold lisinopril in the setting of active GIB. -Vasotec as needed. = Blood pressure still elevated. We will add clonidine. //Factor V Leiden deficiency The patient has been on Coumadin for about 18 years. She has never had any major bleeding. She has not had a stroke before. -Coumadin on hold as above. Resume when OK with GI. //PPx: Holding Coumadin in setting of GIB. INR is therapeutic Discharge Planning: Pending GI clearance.
--- NOTE | 2018-01-14 10:18 | P.PNGI ---
Subjective Interval history: Feels better today. had only one small bout of bleeding yesterday. had one unit of prbc last night. coumadin has been on hold. Abdominal pain is less. no fever or chills no n/v Physical Exam Vital signs: Vital Signs 01/13/18 11:17 01/13/18 12:39 01/13/18 16:00 Temperature 98.9 F Pulse Rate 68 96 H 71 Respiratory Rate 20 20 Blood Pressure 163/83 H 162/82 H Pulse Oximetry 99 97 01/13/18 20:00 01/13/18 21:54 01/13/18 22:09 Temperature 98.7 F 97.5 F L 98.3 F Pulse Rate 67 67 68 Respiratory Rate 17 16 16 Blood Pressure 168/80 H 158/83 H 166/79 H Pulse Oximetry 95 96 97 01/14/18 00:20 01/14/18 01:33 01/14/18 04:00 Temperature 97.9 F Pulse Rate 62 64 51 L Respiratory Rate 16 Blood Pressure 154/80 H Pulse Oximetry 96 01/14/18 04:20 01/14/18 07:47 01/14/18 08:00 Temperature 97.6 F 97.9 F Pulse Rate 63 68 70 Respiratory Rate 16 16 16 Blood Pressure 125/70 175/80 H Pulse Oximetry 97 94 L Intake & Output 01/13/18 01/14/18 01/14/18 18:59 06:59 18:59 Intake Total 1000 / 1000 2665 / 2665 Balance 1000 / 1000 2665 / 2665 Weight 69 kg 69 kg Intake: IV 1000 / 1000 2009 NS Inj 1,000 ML @ 125 mls/hr IV 1000 / 1000 1989 .CONT .Q8H ANN Rx#:[id number] NS Inj 250 ML @ 15 mls/hr IV. 20 / 20 SIG ONCE ANN Rx#:[id number] Oral 240 / 240 Other Rbc As-3 Leukoreduced Unit [id number] Intake (Blood Product) Amt 400 / 400 Rbc As-3 Leukoreduced Unit 400 / 400 [id number] Other: Other Intake Source Rbc As-3 Leukoreduced Unit Saline Solution [id number] # Voids 1 Date of Last Bowel Movement 01/13/18 01/13/18 Weight On Admission 69 kg - Constitutional no acute distress - Routine HEENT Exam Head: Present: normocephalic Eye: Present: EOMI ENT: Present: mucous membranes moist - Routine Neck Exam Present: supple, full ROM - Routine Respiratory Exam Present: CTA bilaterally - Routine Cardiovascular Exam Present: RRR, S1, S2 - Routine Abdominal Exam Present: soft, normoactive bowel sounds, tenderness, distended Results - Labs CBC & Chem 7: 01/14/18 04:48 01/14/18 04:48 Laboratory Results - last 24 hr 01/13/18 01/13/18 01/13/18 12:21 15:40 20:05 WBC RBC Hgb 13.7 8.6 L D Hct 40.8 25.6 L MCV MCH MCHC RDW Plt Count MPV Neut % (Auto) Lymph % (Auto) [place] % (Auto) Eos % (Auto) Baso % (Auto) Neut # (Auto) Lymph # (Auto) [place] # (Auto) Eos # (Auto) Baso # (Auto) WBC Differential Differential Comment Sodium Potassium Chloride Carbon Dioxide Anion Gap BUN Creatinine Estimated GFR Random Glucose Calcium MTS Gel Crossmatch See Detail Bld Prod Order Comment 01/14/18 01/14/18 04:48 04:48 WBC 8.1 RBC 4.87 Hgb 14.4 D Hct 42.3 MCV 86.8 MCH 29.6 MCHC 34.1 RDW 15.2 Plt Count 207 MPV 8.2 Neut % (Auto) 70.2 H Lymph % (Auto) 17.2 [place] % (Auto) 9.5 H Eos % (Auto) 2.4 Baso % (Auto) 0.7 Neut # (Auto) 5.7 Lymph # (Auto) 1.4 [place] # (Auto) 0.8 Eos # (Auto) 0.2 Baso # (Auto) 0.1 WBC Differential . Differential Comment Auto diff final Sodium 144 Potassium 3.6 Chloride 111 H Carbon Dioxide 24.6 Anion Gap 8 BUN 6 L Creatinine 0.56 Estimated GFR Greater than 89 Random Glucose 78 Calcium 8.2 L MTS Gel Crossmatch Bld Prod Order Comment Assessment and Plan - Plan IMP: 1. Ischemic colitis 2. BRBPR improving 3. abodo pain improving PLAN: 1. START Clear liquid diet and advance to full liquid as tolerated 2. Monitor stool for bleeding 3. If no bleeding then pt will need to get back on anticoagulation 4. discussed with pt and family and pt that restarting coumadin can increase risk of bleeding.
[2018-01-14] MEDS ORDERED: Morphine Inj 4 MG/ML Vial IV.PUSH PRN (19:00)
[2018-01-15] MEDS: Levothyroxine 75 MCG Tablet PO SCH (07:06)
[2018-01-15] MEDS: Pantoprazole Inj 40 MG Vial IV.PUSH SCH ×2 (09:00→22:09)
[2018-01-15] MEDS ORDERED: Diatrizoate Meglum/Diatrizoate Sod Liq 9 ML UDC PO ONE (09:00)
--- NOTE | 2018-01-15 09:38 | CT ---
EXAM DATE: 01/15/2018 9:19 AM EDT AGE/SEX: 82 years / Female INDICATIONS: Right lower abdomen pain. CLINICAL DATA: This is the patient's initial encounter. Patient reports that signs and symptoms have been present for 2 days and indicates a pain score of 6/10. MEDICAL/SURGICAL HISTORY: None. None. ORAL CONTRAST: Prescribed oral contrast ingested. RADIATION DOSE: 10.68 CTDI (mGy) Patient was premedicated per protocol for underlying contrast media allergy. COMPARISON: [facility], CT ABDOMEN AND PELVIS W/O CONTRAST, 07/06/2017. . TECHNIQUE: Multiple contiguous axial images were obtained through the abdomen and pelvis following b olus infusion of 70 ml Omnipaque 350 (iohexol) nonionic water-soluble contrast as a single exam dos e. Prescribed oral contrast ingested. Using automated exposure control and adjustment of the mA and/ or kV according to patient size, radiation dose was kept as low as reasonably achievable to obtain op timal diagnostic quality images. DICOM format image data is available electronically for review and comparison. FINDINGS: Lower Lungs: The visualized lower lungs are clear. Large hiatal hernia. Liver: The liver has a homogeneous density without space-occupying lesion. There is no dilation of th e biliary tree. Spleen: Homogeneous density without enlargement. Pancreas: Unremarkable without mass or calcification. Kidneys: Normal in size and shape. No evidence of mass or hydronephrosis. Adrenal Glands: Unremarkable. Aorta: The aorta and proximal iliac vessels are grossly unremarkable without aneurysmal dilation. Bowel/Mesentery: There is mild nonspecific circumferential wall thickening of the upper cecum. Howev er this segment of bowel is nondistended. No surrounding inflammatory changes. Appendix is not identi fied. No evidence of bowel dilatation. No free air or free fluid. Abdominal Wall: Intact. Retroperitoneum: No evidence of adenopathy in the retrocrural, para-aortic, or deep pelvic regions. Bladder: Contours are smooth. Reproductive Organs: No abnormal masses or calcifications seen. Inguinal: Small fat-containing left inguinal hernia again noted. No evidence of bowel involvement or inflammatory change. Bony Structures: Unremarkable. CONCLUSION: 1. Nonspecific mild wall thickening of the upper cecum. May be due to incomplete distention. No surr ounding inflammatory changes. 2. No other acute findings in the abdomen and pelvis. 3. Large hiatal hernia. Electronically signed by: Bobby Wing MD 01/15/2018 9:36 AM EDT
[2018-01-15] MEDS: Sod Chloride 0.9% Inj 1,000 ML IV.CONT SCH (11:12)
[2018-01-15] MEDS: Lisinopril 20 MG Tablet PO SCH ×2 (11:13)
[2018-01-15 12:27] LABS: Hematocrit 49.6 % (35.0-46.0); Hemoglobin 16.4 gm/dL (11.6-15.3); Mean Corpuscular Hemoglobin 29.4 pg (27.0-34.0); Mean Corpuscular Volume 88.9 fL (80.0-100.0); Mean Platelet Volume 8.1 fL (7.0-11.0); Platelet Count 209 th/mm3 (150-450); Red Blood Count 5.58 mil/mm3 (4.00-5.30); Red Cell Distribution Width 15.7 % (11.6-17.2); White Blood Count 8.7 th/mm3 (4.0-11.0)
[2018-01-15 12:34] LABS: INR 2.1 Ratio; Prothrombin Time 21.4 sec (9.8-11.6)
--- NOTE | 2018-01-15 15:44 | P.PNIM ---
Subjective Interval history: Patient reports she is feeling better today. No further episodes of bright red blood per rectum. Abdominal pain is much less. She would like to advance her diet. Physical Exam Vital signs: Vital Signs 01/14/18 15:56 01/14/18 16:00 01/14/18 16:56 Temperature 97.9 F Pulse Rate 68 56 L Respiratory Rate 18 18 Blood Pressure 177/95 H 177/95 H 133/77 Pulse Oximetry 98 97 01/14/18 20:00 01/14/18 22:22 01/15/18 00:00 Temperature 97.6 F 97.9 F 98.2 F Pulse Rate 60 56 L 53 L Respiratory Rate 18 16 18 Blood Pressure 160/90 H 145/73 H Pulse Oximetry 98 98 96 01/15/18 07:02 01/15/18 07:52 01/15/18 08:00 Temperature 97.7 F 98.1 F Pulse Rate 70 78 80 Respiratory Rate 19 16 Blood Pressure 140/70 141/82 H Pulse Oximetry 93 L 95 01/15/18 12:00 Temperature 98.3 F Pulse Rate 81 Respiratory Rate 18 Blood Pressure 153/80 H Pulse Oximetry 98 Intake & Output 01/14/18 01/15/18 01/15/18 18:59 06:59 18:59 Intake Total 2440 / 2440 1240 / 1240 1000 / 1000 Balance 2440 / 2440 1240 / 1240 1000 / 1000 Weight 71 kg Intake: IV 1000 / 1000 1000 / 1000 1000 / 1000 NS Inj 1,000 ML @ 65 mls/hr IV. 1000 / 1000 1000 / 1000 1000 / 1000 CONT .[id number] ANN Rx#:[id number] Oral 1440 / 1440 240 / 240 Other: # Voids 7 1 Date of Last Bowel Movement 01/13/18 01/13/18 01/13/18 Narrative: GENERAL: Appears comfortable. NECK: Supple, trachea midline. No JVD or lymphadenopathy. CARDIOVASCULAR: Regular rate and rhythm without murmurs, gallops, or rubs. RESPIRATORY: Breath sounds equal bilaterally. No accessory muscle use. GASTROINTESTINAL: Abdomen soft, non-tender, nondistended. No rebound or guarding. MUSCULOSKELETAL: No cyanosis, or edema. BACK: Nontender without obvious deformity. No CVA tenderness. Results - Labs CBC & Chem 7: 01/15/18 11:55 01/14/18 04:48 Laboratory Results - last 24 hr 01/14/18 01/15/18 01/15/18 04:44 11:55 11:55 WBC 8.7 RBC 5.58 H Hgb 16.4 H D Hct 49.6 H MCV 88.9 MCH 29.4 MCHC 33.0 RDW 15.7 Plt Count 209 MPV 8.1 PT 21.4 H INR 2.1 TSH 0.905 - Imaging Impressions Abdomen/Pelvis CT 01/15/18 00:09 CONCLUSION: 1. Nonspecific mild wall thickening of the upper cecum. May be due to incomplete distention. No surrounding inflammatory changes. 2. No other acute findings in the abdomen and pelvis. 3. Large hiatal hernia. Assessment and Plan - Plan 82-year-old female admitted with bright red blood per rectum: BRBPR The pt is on Coumadin for factor V Leiden deficiency. Her INR is 2.5. She continues to have BRBPR along with some abdominal cramping. She has a history of ischemic colitis. -GI following. Abdominal skin reveals some nonspecific abnormality of the cecum. -Advance to soft diet. -holding ASA and Coumadin for now. -H&H is normal. -Bleeding seems to have resolved. HTN Blood pressure acceptable. Continue lisinopril. Clonidine as needed. Factor V Leiden deficiency The patient has been on Coumadin for about 18 years. She has never had any major bleeding. She has not had a stroke before. -INR 2.1 today. Would be reasonable to restart Coumadin tomorrow if no further bleeding and OK with GI. PPx: Holding Coumadin in setting of GIB. INR is therapeutic Discharge Planning: Plan to DC tomorrow if no further bleeding and she can tolerate a diet.
--- NOTE | 2018-01-15 16:10 | P.PNGI ---
Subjective Interval history: feels good today, no abdo pain. had right and left sided abdo pain yesterday. had CT abdo and pelvis. negative for acute pathology hasnot had BM or bleeding since admission INR sill therapeutic. pt states usually gets dx with UTI when her BP elevates. Physical Exam Vital signs: Vital Signs 01/14/18 16:56 01/14/18 20:00 01/14/18 22:22 Temperature 97.6 F 97.9 F Pulse Rate 56 L 60 56 L Respiratory Rate 18 18 16 Blood Pressure 133/77 160/90 H Pulse Oximetry 97 98 98 01/15/18 00:00 01/15/18 07:02 01/15/18 07:52 Temperature 98.2 F 97.7 F 98.1 F Pulse Rate 53 L 70 78 Respiratory Rate 18 19 16 Blood Pressure 145/73 H 140/70 141/82 H Pulse Oximetry 96 93 L 95 01/15/18 08:00 01/15/18 12:00 Temperature 98.3 F Pulse Rate 80 81 Respiratory Rate 18 Blood Pressure 153/80 H Pulse Oximetry 98 Intake & Output 01/14/18 01/15/18 01/15/18 18:59 06:59 18:59 Intake Total 2440 / 2440 1240 / 1240 1000 / 1000 Balance 2440 / 2440 1240 / 1240 1000 / 1000 Weight 71 kg Intake: IV 1000 / 1000 1000 / 1000 1000 / 1000 NS Inj 1,000 ML @ 65 mls/hr IV. 1000 / 1000 1000 / 1000 1000 / 1000 CONT .[id number] ANN Rx#:[id number] Oral 1440 / 1440 240 / 240 Other: # Voids 7 1 Date of Last Bowel Movement 01/13/18 01/13/18 01/13/18 - Constitutional no acute distress - Routine HEENT Exam Head: Present: normocephalic Eye: Present: EOMI, PERRL ENT: Present: mucous membranes moist, mucous membranes dry - Routine Neck Exam Present: supple - Routine Respiratory Exam Present: CTA bilaterally - Routine Cardiovascular Exam Present: RRR, S1 - Routine Abdominal Exam Present: soft, normoactive bowel sounds. Absent: tenderness, distended, rebound , guarding, organomegaly - Routine Extremities Exam Present: pulses intact, normal capillary refill. Absent: calf tenderness Results - Labs CBC & Chem 7: 01/15/18 11:55 01/14/18 04:48 Laboratory Results - last 24 hr 01/14/18 01/15/18 01/15/18 04:44 11:55 11:55 WBC 8.7 RBC 5.58 H Hgb 16.4 H D Hct 49.6 H MCV 88.9 MCH 29.4 MCHC 33.0 RDW 15.7 Plt Count 209 MPV 8.1 PT 21.4 H INR 2.1 TSH 0.905 - Imaging Impressions Abdomen/Pelvis CT 01/15/18 00:09 CONCLUSION: 1. Nonspecific mild wall thickening of the upper cecum. May be due to incomplete distention. No surrounding inflammatory changes. 2. No other acute findings in the abdomen and pelvis. 3. Large hiatal hernia. Assessment and Plan - Plan IMP: 1. Ischemic colitis 2. BRBPR resolved. 3. abdo pain improving PLAN: 1. Regular Diet as tolerated 2. UA 3. If no bleeding then pt will need to get back on anticoagulation 4. If no bleeding and tolerating diet well then no objection to discharge from gi stand point.
[2018-01-15 21:49] LABS: Bilirubin,Urine Negative (Negative); Clarity,Urine Clear (Clear); Color,Urine Yellow (Yellw/Straw); Glucose,Urine (UA) Negative (Negative); Leukocyte Esterase,Urine Trace (Negative); Nitrite,Urine Negative (Negative); Specific Gravity,Urine 1.018 (1.002-1.035); Squamous Epithelial Cell,Urine <1 /hpf (0-5)
[2018-01-16] MEDS: Temazepam 15 MG Capsule PO PRN ×2 (00:03→23:51)
[2018-01-16] MEDS: Levothyroxine 75 MCG Tablet PO SCH (05:26)
[2018-01-16] MEDS: Sod Chloride 0.9% Inj 1,000 ML IV.CONT SCH ×2 (05:28→19:33)
[2018-01-16] MEDS: Lisinopril 20 MG Tablet PO SCH (08:35)
[2018-01-16] MEDS: Pantoprazole Inj 40 MG Vial IV.PUSH SCH ×2 (08:36→21:10)
--- NOTE | 2018-01-16 10:46 | XR ---
EXAM DATE: 01/16/2018 10:33 AM EDT AGE/SEX: 82 years / Female INDICATIONS: Pain in lower abdomen, rectal region. Patient states she hasn't had a bowel movement in 3 days. CLINICAL DATA: This is the patient's initial encounter. Patient reports that signs and symptoms have been present for 3 days and indicates a pain score of 6/10. MEDICAL/SURGICAL HISTORY: . Factor V. Appendectomy. Oophorectomy. Multiple hernia repairs. Par tial removal of the colon. COMPARISON: [facility] [place], CT ABDOMEN & PELVIS W CONTRAST, 01/15/2018. . FINDINGS: 2 supine frontal views of the abdomen demonstrate a nonobstructive bowel gas pattern. The oral contr ast material from yesterday's CT scan is within the descending colon, sigmoid colon, and rectum. Clip s overlie the left pelvis. No organomegaly or concerning calcifications are seen. There is mild levos coliosis. Lung bases demonstrate no acute finding. CONCLUSION: No acute abdominal abnormality is identified. There are no findings to indicate obstruction. The oral contrast from yesterday's CT scan has reached the rectum. Electronically signed by: Boyd Priest MD 01/16/2018 10:44 AM EDT
[2018-01-16] MEDS ORDERED: Bisacodyl 10 MG Supp RECTAL ONE (12:00)
--- NOTE | 2018-01-16 13:18 | P.PNIM ---
Subjective Interval history: Patient reports increasing abdominal cramps this morning and a feeling of rectal fullness as if she needs to have a bowel movement but has been unable to do so. Physical Exam Vital signs: Vital Signs 01/15/18 16:00 01/15/18 20:09 01/15/18 20:27 Temperature 97.7 F 97.7 F Pulse Rate 92 H 76 83 Respiratory Rate 16 20 Blood Pressure 124/83 122/68 Pulse Oximetry 97 97 01/16/18 00:05 01/16/18 04:00 01/16/18 08:35 Temperature 98 F 97.5 F L 97.7 F Pulse Rate 75 60 66 Respiratory Rate 20 20 18 Blood Pressure 149/79 H 133/74 136/80 Pulse Oximetry 98 96 99 Intake & Output 01/15/18 01/16/18 01/16/18 18:59 06:59 18:59 Intake Total 3160 / 3160 1000 / 1000 Balance 3160 / 3160 1000 / 1000 Weight 71 kg Intake: IV 1000 / 1000 1000 / 1000 NS Inj 1,000 ML @ 65 mls/hr IV. 1000 / 1000 1000 / 1000 CONT .[id number] ANN Rx#:[id number] Oral 2160 / 2160 Other: # Voids 8 3 Date of Last Bowel Movement 01/13/18 01/13/18 Narrative: GENERAL: No acute distress. Some intermittent abdominal discomfort NECK: Supple, trachea midline. No JVD or lymphadenopathy. CARDIOVASCULAR: Regular rate and rhythm without murmurs, gallops, or rubs. RESPIRATORY: Breath sounds equal bilaterally. No accessory muscle use. GASTROINTESTINAL: Abdomen soft, nondistended. Mild tenderness to palpation over the right lower quadrant. No rebound or guarding. Hypoactive bowel sounds MUSCULOSKELETAL: No cyanosis, or edema. BACK: Nontender without obvious deformity. No CVA tenderness. Results - Labs CBC & Chem 7: 01/15/18 11:55 01/14/18 04:48 Laboratory Results - last 24 hr 01/15/18 21:26 Urine Color Yellow Urine Clarity Clear Urine pH 6.0 Ur Specific [place] 1.018 Urine Protein Negative Urine Glucose (UA) Negative Urine Ketones Trace H Urine Occult Blood Negative Urine Nitrate Negative Urine Bilirubin Negative Urine Urobilinogen Less than 2 Ur Leukocyte Esterase Trace H Urine RBC Less than 1 Urine WBC 2 Ur Squamous Epith Cells <1 Micro UA Comment Culture not ind Urine Culture Comments Culture not ind - Imaging Impressions Abdomen X-Ray 01/16/18 00:00 CONCLUSION: No acute abdominal abnormality is identified. There are no findings to indicate obstruction. The oral contrast from yesterday's CT scan has reached the rectum. Assessment and Plan - Plan 82-year-old female admitted with bright red blood per rectum: BRBPR The pt is on Coumadin for factor V Leiden deficiency. Her INR is 2.5. She continues to have BRBPR along with some abdominal cramping. She has a history of ischemic colitis. -GI following. Abdominal scan reveals some nonspecific abnormality of the cecum. -Advance diet as tolerated -Resume Coumadin. -H&H is normal. -Bleeding seems to have resolved. Abdominal pain/possible constipation: KUB obtained. Discussed with radiologist. There is contrast throughout the colon therefore there is no obstruction. Some stool noted. Discussed with GI. Recommendations for suppository versus enema. - We will try Dulcolax suppository and monitor for response. HTN Blood pressure acceptable. Continue lisinopril. Clonidine as needed. Factor V Leiden deficiency The patient has been on Coumadin for about 18 years. She has never had any major bleeding. She has not had a stroke before. -INR therapeutic. Resume Coumadin. PPx: INR is therapeutic. Resume Coumadin Discharge Planning: Need to demonstrate abdominal symptoms have resolved. Follow for bowel movement. Possible discharge in the a.m..
[2018-01-16] MEDS ORDERED: Sod Phosphate/Sod Biphosphate (Adult) Enema 133 ML Bottle RECTAL ONE (14:54)
[2018-01-16 19:39] VITALS: RESP 20
[2018-01-17] MEDS: Levothyroxine 75 MCG Tablet PO SCH (05:51)
[2018-01-17 07:41] VITALS: BP 133/74; TEMP 97.4; O2SAT 94
[2018-01-17] MEDS: Lisinopril 20 MG Tablet PO SCH (10:30)
[2018-01-17] MEDS: Pantoprazole Inj 40 MG Vial IV.PUSH SCH (10:31)
[2018-01-17 12:19] VITALS: PULSE 38
--- NOTE | 2018-01-17 15:54 | P.DS ---
Date of admission: 01/13/18 06:17 Primary care physician: UNKNOWN Brief History from admission: HPI from the admitting physician: The patient is an 82-year-old female with past medical history of factor V Leiden, ischemic colitis and hypertension who is presenting to the hospital with bright red blood per rectum. The patient states that she has been having a weird week. She says that she developed pain in her right eye that lasted about half a day. The pain eventually started to involve the bone above her right eye and eventually went away. She says she has noticed her blood pressure has been very high. She went to her primary and her lisinopril was increased from 20 mg once a day to 20 mg twice a day about 2 days ago. She also has clonidine which she takes as needed. She said that yesterday she developed stomach cramps. She said initially the pain was around her bellybutton and then traveled below that. Her stool was described as pink and fluffy. She then developed more pain was continued to progress in nature. She then started to notice clots in her bowel movements and then bright red blood per rectum. She said that at 3 AM it got even worse. She decided to come to the hospital for further evaluation. She said that she is still having some bright red blood per rectum but it is getting better. She has a pressure sensation in her forehead. She says her last colonoscopy was in the beginning of the year and that was normal. She says she is on Coumadin for factor V disease. She is also on aspirin for history of carotid endarterectomy. She does not take NSAIDs otherwise. Update on the day of discharge: Patient reports she is feeling much better. She had a bowel movement. No blood noted. Tolerating her diet. DS: Diagnosis - Discharge Diagnosis (1) GI bleed Status: Acute (2) Hematochezia Status: Acute DS: Summary Hospital Course: 82-year-old female admitted with bright red blood per rectum. Evaluation and treatment course detailed below: BRBPR The pt is on Coumadin for factor V Leiden deficiency. She is on Coumadin for A. fib. She has a history of ischemic colitis. -GI following. Abdominal scan reveals some nonspecific abnormality of the cecum. GI bleeding spontaneously resolved. GI cleared the patient to resume Coumadin. She is advised to follow up outpatient with GI. H&H remained stable. Abdominal pain/possible constipation: Resolved after suppository and enema. HTN Blood pressure acceptable. Continue lisinopril. Factor V Leiden deficiency The patient has been on Coumadin for about 18 years. She has never had any major bleeding. She has not had a stroke before. -Resume Coumadin. - Time Spent with Patient Total time spent providing and/or coordinating discharge services: Less than 30 minutes - Quality: VTE Deep Vein Thrombosis/Pulmonary Embolism Present on Admission: No Exam Vital signs: Vital Signs 01/16/18 17:50 01/16/18 19:26 01/16/18 19:36 Temperature 98 F Pulse Rate 72 65 69 Respiratory Rate 18 20 Blood Pressure 169/78 H 155/84 H Pulse Oximetry 95 97 01/16/18 23:52 01/17/18 04:00 01/17/18 07:40 Temperature 97.7 F 97.9 F 97.4 F L Pulse Rate 68 59 L 52 L Respiratory Rate 18 20 20 Blood Pressure 135/81 148/81 H 133/74 Pulse Oximetry 97 98 94 L 01/17/18 08:00 Temperature Pulse Rate 38 L Respiratory Rate Blood Pressure Pulse Oximetry Intake & Output 01/16/18 01/17/18 01/17/18 18:59 06:59 18:59 Intake Total 1200 / 1200 1500 / 1500 Balance 1200 / 1200 1500 / 1500 Weight 73.5 kg Intake: IV 1000 / 1000 NS Inj 1,000 ML @ 65 mls/hr IV. 1000 / 1000 CONT .[id number] ANN Rx#:[id number] Oral 1200 / 1200 500 / 500 Other: # Voids 9 2 Date of Last Bowel Movement 01/16/18 01/16/18 # Bowel Movements 1 Narrative: GENERAL: This is a well-nourished, well-developed patient, in no apparent distress. CARDIOVASCULAR: Normal rate and regular rhythm without murmurs, gallops, or rubs. RESPIRATORY: Good respiratory efforts. Breath sounds equal and clear to auscultation bilaterally. GASTROINTESTINAL: Abdomen soft, non-tender, non-distended. Normal active bowel sounds MUSCULOSKELETAL: Extremities without cyanosis, or edema. NEURO: Alert & Oriented x4 to person, place, time, situation. Moves all ext x4 PSYCH: Appropriate mood and affect. Results Procedures completed during hospitalization: None - Impressions ITS Impressions Abdomen/Pelvis CT 01/15/18 00:09 CONCLUSION: 1. Nonspecific mild wall thickening of the upper cecum. May be due to incomplete distention. No surrounding inflammatory changes. 2. No other acute findings in the abdomen and pelvis. 3. Large hiatal hernia. Abdomen X-Ray 01/16/18 00:00 CONCLUSION: No acute abdominal abnormality is identified. There are no findings to indicate obstruction. The oral contrast from yesterday's CT scan has reached the rectum. Discharge Plan - Discharge Disposition Patient Disposition: 01 Discharge Home - Discharge Condition Condition: Stable - Discharge Order Discharge Orders: Discharge Order (Routine); Ordered 01/17/18 Ordered By: Ariela Garcia - Physicians Team Primary Care Provider: UNKNOWN, Attending Provider: Ariela Garcia Other Providers: Sage Hoover MD
== END 2018-01-17 12:00 | disposition home or self-care (01) ==
LOC: NEPE 03:17 → NEDA 06:17 → HCIN 08:35
PROVIDERS: ADMIT Family Medicine; ATTEND Family Medicine